=== PATIENT | female | born 1960 | race Two or more races ===

== ENCOUNTER → 2016-10-22 | Day surgery (SDC) | payer OTHER ==
[~2016-10-22] VITALS: Ht 162.6 cm; Wt 61.2 kg
[2016-10-22] VITALS (13 sets, daily range): BP systolic 127–159; BP diastolic 72–95
[~2016-10-22] MED LIST: Bupivacaine 0.25% Inj 30ml INJ ONE; EPINEPHrine 1mg/1ml Amp ONE; Glycopyrrolate 0.2mg/ml 1ml Vial ONE; Hydromorphone 0.5mg/0.5ml inj IVP PRN; Metoclopramide 10mg/2ml Inj IVP ONE; Midazolam 2mg/2ml Inj ONE; Morphine Sulfate 2mg/ml Inj IVP PRN; NKM; NS Irrig 4000ml IRRIG ONE; Neostigmine 1mg/ml 10ml Inj ONE; Norco 5mg/325mg tab ORAL PRN; Propofol 10mg/ml 20ml IV ONE; Ropivacaine 5mg/ml Vial 20ml INJ ONE; Succinylcholine 20mg/ml 10ml vial ONE; Zemuron 50mg/5ml Inj IV ONE; ceFAZolin 1gm/50ml Premix 50 ML IV ONE; celeBREX 200mg Cap **SURGERY PATIENTS ONLY ORAL ONE; fentaNYL 100 mcg/2 mL IV ONE; oxyCONTIN 20mg tab ORAL ONE
--- NOTE | 2016-10-22 07:01 | Pre-Procedure Note/Attestation ---
Pre-Procedure Note/Attestation Complete Prior to Procedure Planned Procedure: left Procedure Narrative: shoulder arthroscopy, slap repair, sad Indications for Procedure Pre-Operative Diagnosis: left shoulder slap tear, impingement Attestation I attest that I discussed the nature of the procedure; its benefits; risks and complications; and alternatives (and the risks and benefits of such alternatives ), prior to the procedure, with the patient (or the patient's legal customer retention representative). I attest that, if there was a reasonable possibility of needing a blood transfusion, the patient (or the patient's legal customer retention representative) was given the [facility] standardized written summary, pursuant to the Tomas Jagruti Blood Safety Act ([place] Health and Safety Code # 1645, as amended). I attest that I re-evaluated the patient just prior to the surgery and that there has been no change in the patient's H&P, except as documented below: DARIEL MOYA Oct 22, 2016 07:01
--- NOTE | 2016-10-22 07:01 | Operative Note - PDOC ---
Operative Note Operative Note Pre-op Diagnosis: left shoulder slap tear, impingement Procedure: left shoulder arthroscopy Post-op Diagnosis: same as pre-op plus Anesthesia: general Complications: none Condition: stable Estimated Blood Loss: none Drains: none Implant(s) used?: DARIEL Lake Oct 22, 2016 07:01
--- NOTE | 2016-10-22 07:48 | Anethesia Preoperative Eval ---
Anesthesia Pre-op PMH/ROS General Date of Evaluation: Oct 22, 2016 Mallampati Score Class I : Soft palate, uvula, fauces, pillars visible Class II: Soft palate, uvula, fauces visible Class III: Soft palate, base of uvula visible Class IV: Only hard plate visible Diagnosis: Left shoulder internal derangement Surgical Procedure: Left shoulder arthroscopy Anesthesia History: none Family History: no anesthesia problems Allergies: Coded Allergies: No Known Allergies (Unverified , 10/21/16) Medications: see SERAFIN Sanchez M.D. Oct 22, 2016 07:48
--- NOTE | 2016-10-22 10:18 | Anethesia Preoperative Eval ---
Anesthesia Pre-op PMH/ROS General Date of Evaluation: Oct 22, 2016 Time of Evaluation: 09:40 Anesthesiologist: VELMA ASA Score: ASA 1 Mallampati Score Class I : Soft palate, uvula, fauces, pillars visible Class II: Soft palate, uvula, fauces visible Class III: Soft palate, base of uvula visible Class IV: Only hard plate visible Mallampati Classification: Class II Surgeon: NITA Diagnosis: SLAP LESION L SHOULDER Surgical Procedure: ARTHROSCOPIC REPAIR SHOULDER L Anesthesia History: none Family History: no anesthesia problems Allergies: Coded Allergies: No Known Allergies (Unverified , 10/21/16) Medications: see eMAR Past Medical History Cardiovascular: Denies: CAD, HTN, [place], arrhythmia, other, valve dz Pulmonary: Denies: COPD, ANNA, asthma, other Gastrointestinal/Genitourinary: Denies: CRI, ESRD, GERD, other Neurologic/Psychiatric: Denies: CVA, TIA, dementia, depression/anxiety, other Endocrine: Denies: DM, hypothyroidism, other, steroids HEENT: Denies: ELIM IRA (L), ELIM IRA (R), cataract (L), cataract (R), glaucoma, other Hematology/Immune: Denies: DVT, anemia, bleeding disorder, other Musculoskeletal/Integumentary: Denies: DDD, DJD, OA, RA, edema, other Anesthesia Pre-op Phys. Exam Physician Exam Last Vital Signs Date Time Temp Pulse Resp B/P Pulse Ox O2 Delivery O2 Flow Rate FiO2 10/22/16 08:08 98.1 81 18 130/78 100 Room Air Constitutional: NAD Neurologic: CN 2-12 intact Cardiovascular: RRR Respiratory: CTA Gastrointestinal: S/NT/ND Airway Exam Mallampati Score: Class II MO: full ROM: full Teeth: intact Dentures: no lower, no upper Anesthesia Pre-op A/P Risk Assessment & Plan Assessment: ASA1 Plan: GET WITH INTERSCALENE BLOCK Status Change Before Surgery: No Pre-Antibiotics Drug: ANCEF Given Within 1 Hr of Incision: Yes Time Given: 09:45 KARISHMA CARREON M.D. Oct 22, 2016 10:18
--- NOTE | 2016-10-22 10:19 | 48 Hour Post Anesthesia Eval ---
Post Anesthesia Evaluation Procedure: ARTHROSCOPIC REPAIR L SHOULDER Date of Evaluation: Oct 22, 2016 Time of Evaluation: 12:30 Blood Pressure Systolic: 133 0: 80 Pulse Rate: 70 Respiratory Rate: 15 Temperature (Fahrenheit): 98 O2 Sat by Pulse Oximetry: 100 Airway: patent Nausea: No Vomiting: No Hydration Status: adequate Mental Status/LOC: patient returned to baseline Post-Anesthesia Complications: 0 KARISHMA CARREON M.D. Oct 22, 2016 10:19
--- NOTE | 2016-10-22 10:19 | Immediate Post-Op Evaluation ---
Immediate Post-Op Evalulation Immediate Post-Op Evalulation Procedure: ARTHROSCOPIC REPAIR L SHOULDER Date of Evaluation: Oct 22, 2016 Time of Evaluation: 10:35 IV Fluids: 780 Blood Products: 0 Estimated Blood Loss: 0 Urinary Output: 0 Blood Pressure Systolic: 135 Blood Pressure Diastolic: 76 Pulse Rate: 85 Respiratory Rate: 13 O2 Sat by Pulse Oximetry: 100 Temperature (Fahrenheit): 97.2 Pain Score (1-10): 2 Nausea: No Vomiting: No Patient Status: awake, patent, none Drug: ANCEF Given Within 1 Hr of Incision: Yes Time Given: 09:45 KARISHMA CARREON M.D. Oct 22, 2016 10:19
--- NOTE | 2016-10-22 20:28 | Operative Note - Dictated ---
DATE OF OPERATION: 10/22/2016 PREOPERATIVE DIAGNOSES: 1. Left shoulder traumatic superior labrum anterior and posterior tear. 2. Left shoulder impingement syndrome. POSTOPERATIVE DIAGNOSES: 1. Left shoulder traumatic superior labrum anterior and posterior tear. 2. Left shoulder impingement syndrome. 3. Partial articular-sided rotator cuff. PROCEDURES: 1. Left shoulder diagnostic arthroscopy with extensive intraarticular debridement. 2. Left shoulder arthroscopic SLAP repair. 3. Left shoulder subacromial decompression with bursectomy, decompression, and release of the coracoclavicular ligament. SURGEON: Barrera Rausch M.D. ANESTHESIA: Interscalene with general. INDICATION FOR PROCEDURE: The patient is a pleasant female, who has had progressive left shoulder pain. She had MRI, which showed a traumatic SLAP tear. She failed conservative treatment and elected to undergo left shoulder arthroscopic SLAP repair. Risks, limitations, expectations, and complications of the procedure were discussed in detail including continued pain, need for future surgery, risk of anesthesia, medical complications, DVT, PE, and mortality risks. Additionally, the possibility of stiffness was also discussed with the patient. All questions were addressed. DESCRIPTION OF PROCEDURE: An informed consent was obtained. The patient was taken to the operative room and placed under interscalene general anesthesia. The patient was then carefully placed in the beachchair position. Left shoulder was prepped and draped in a sterile manner. Time-out was performed. Portal sites were injected with 0.25% Marcaine with epinephrine. Inferolateral stab incision was then made. Trocar was introduced into the glenohumeral joint. There is no chondral damage. The anterior labrum appeared to be intact. The superior labrum had fraying and tearing. There was detachment of the superior labrum. Biceps tendon appeared to be intact. There is a partial tear of the rotator cuff. At this point, it was felt that the superior labrum anchor was somewhat detached, therefore, the undersurface of the labrum was debrided of any degenerative tissue. The superior aspect of the glenoid was cleaned of any soft tissue. Brethren was then placed and the superior labrum was reattached to this glenoid. It was nice and stable fixation. At this point, the shaver was then placed in the supraspinatus and partial debridement of the articular side rotator cuff was performed. Once that was done, the camera was repositioned in the subacromial space. There is mild hypertrophic bursal tissue. There was erythema along the AC joint and coracoclavicular ligament. Therefore, the coracoclavicular ligament was released and undersurface of the acromion was identified. Acromioplasty was started from lateral to medial and completed from posterior to anterior. A complete bursectomy posteriorly was also completed. Once that was done, bursal side of the rotator cuff was evaluated and noted to be intact. At this point, the instruments removed. Portal sites were closed using 3-0 Monocryl suture. Steri-Strips and a sterile dressing were applied. The patient was awoken and taken to recovery room with stable vital signs. ESTIMATED BLOOD LOSS: Minimal. COMPLICATIONS: None. SPECIMENS: None. IMPLANTS: Include one [employer] JuggerKnot anchor. Barrera Rausch M.D. DR: KELTON JOB#: [id number] CC:
== END | disposition home or self-care (01) ==
LOC: SUR 06:29
DX: S43.432A Superior glenoid labrum lesion of left shoulder, initial encounter (principal); M75.42 Impingement syndrome of left shoulder; M75.112 Incomplete rotator cuff tear or rupture of left shoulder, not specified as traumatic; V43.52XA Car driver injured in collision with other type car in traffic accident, initial encounter; Y92.410 Unspecified street and highway as the place of occurrence of the external cause; Y99.9 Unspecified external cause status
CPT/HCPCS: 29807; 29826; J0171; J0330; J0690; J2250; J2405; J2704; J2710; J2765; J2795; J3010; J3490; 94003; 94150